=== PATIENT | male | born 1945 | race Caucasian/White ===

== ENCOUNTER 2019-09-15 13:12 | Outpatient (CLI) | payer MEDICARE, SELFPAY | END 2019-09-15 13:13 | disposition home or self-care (01) | LOC: ANHAUDIO 13:13 | PROVIDERS: PCP Family Medicine; Visit Provider Family Medicine | DX: H90.A32 Mixed conductive and sensorineural hearing loss, unilateral, left ear with restricted hearing on the contralateral side (principal); H90.A21 Sensorineural hearing loss, unilateral, right ear, with restricted hearing on the contralateral side | CPT/HCPCS: 92557; 92567 ==

== ENCOUNTER → 2020-09-06 13:03 | Outpatient (CLI) | payer MEDICARE, SELFPAY ==
--- NOTE | ~2020-09-06 | US_ITS ---
EXAMINATION: US renal BI EXAM DATE: 09/06/2020 13:30 INDICATION: Acute kidney injury. TECHNIQUE: Multiple grayscale and Doppler images of the kidneys were obtained (by a technologist who performed the scan) and subsequently reviewed. There is no prior study for comparison. FINDINGS: Right kidney: There is normal contour and echogenicity. It measures 11.8 x 5.9 x 6.2 centimeters. T here are no focal renal lesions identified. There is mild hydronephrosis. Left kidney: There is normal contour and echogenicity. It measures 10.7 x 4.9 x 5.0 centimeters. The re is an indeterminate hypoechoic region measuring 1.9 cm appears to be in the mid to lower pole. T here is no hydronephrosis. Bladder unremarkable. IMPRESSION: 1. Indeterminate left renal hypoechoic region, possible solid mass versus lobulation. 2. Mild right-sided hydronephrosis. Does patient have any right flank pain? 3. Consider CT scan without (and with contrast if able) for further evaluation. Reviewed, dictated and finalized at location A. ENT CARRIER IMPRESSION: 1. Indeterminate left renal hypoechoic region, possible solid mass versus lobu lation. 2. Mild right-sided hydronephrosis. Does patient have any right flank pain? 3. Consider CT scan without (and with contrast if able) for further evaluation .
== END ==
PROVIDERS: PCP Family Medicine; Visit Provider Family Medicine
DX: N17.9 Acute kidney failure, unspecified (principal)
CPT/HCPCS: 76775

== ENCOUNTER → 2020-09-12 09:08 | Outpatient (CLI) | payer MEDICARE, SELFPAY ==
--- NOTE | ~2020-09-12 | CT_ITS ---
EXAMINATION: CT abdomen pelvis wo con DATE: 09/12/2020 09:35 INDICATION: Hydronephrosis of right kidney. Abnormality left kidney. History kidney stones. TECHNIQUE: Computed tomography (CT) of the abdomen and pelvis was performed without intravenous contr ast. Automated exposure control and iterative reconstruction technique were employed. Exam dose: 636 .52 mGy-cm total exam DLP. COMPARISON: 09/06/2020 bilateral renal ultrasound: Indeterminate left renal hypoechoic lesion, possibl y solid mass versus lobulation was reported. Mild right hydronephrosis. FINDINGS: Severe emphysematous changes of the included lower lung zones. Normal heart size. Coronary artery calcifications. Old pulmonary granulomatous disease. Multiple calcified hepatic and splenic granulomas, also consiste nt with old granulomatous disease. 1.4 cm gallstone. No gallbladder wall thickening or pericholecystic fluid or fat stranding is noted. No hepatic, splenic, pancreatic, and adrenal or renal space-occupying mass lesion is evident on this limited noncontrast examination. Approximately 2 mm nonobstructing lower pole left renal calculus. No ureteral calculus on either side . Mild nonspecific right hydroureteronephrosis; consider repeat CT abdomen pelvis with IV contrast ma terial to determine if there might be a focal bladder or prostate mass at the trigone area obstructin g the right ureter. Alternatively, consider cystoscopy and retrograde pyelography. There is moderatel y prominent enlargement of the prostate gland. The urinary bladder is unremarkable. There is atherosclerotic calcification but normal caliber of the abdominal aorta and iliac arteries. No intraperitoneal or retroperitoneal or pelvic mass lesion or adenopathy or ascites. Right ventriculoperitoneal shunt catheter terminates in the right lower quadrant. There is a small am ount of free fluid in the dependent pelvis. There is diverticulosis of the sigmoid and descending colon; no CT evidence of diverticulitis. No bow el obstruction, bowel wall thickening, pneumatosis or intraperitoneal free air is detected. Small fat-containing inguinal hernias, right larger than left. There are degenerative changes of the thoracic and lumbar spine. No suspicious osteolytic or osteobla stic lesions are noted. IMPRESSION: Mild right hydroureteronephrosis, of undetermined etiology; further evaluation is recomme nded by CT abdomen pelvis with IV contrast material or perhaps cystoscopy with retrograde right pyelo graphy, in order to exclude any possible obstructing bladder or distal ureteral mass Severe emphysema Coronary artery disease Cholelithiasis 2 mm nonobstructing lower pole left renal calculus Prostate enlargement Right ventriculoperitoneal shunt catheter Diverticulosis of the left colon; no CT evidence of diverticulitis Reviewed, dictated and finalized at Location A. Reviewed, dictated and finalized at location A. IT RISK ASSOCIATE IMPRESSION: Mild right hydroureteronephrosis, of undetermined etiology; further evaluation is recommended by CT abdomen pelvis with IV contrast material or pe rhaps cystoscopy with retrograde right pyelography, in order to exclude any pos sible obstructing bladder or distal ureteral mass Severe emphysema Coronary artery disease Cholelithiasis 2 mm nonobstructing lower pole left renal calculus Prostate enlargement Right ventriculoperitoneal shunt catheter Diverticulosis of the left colon; no CT evidence of diverticulitis
== END ==
PROVIDERS: PCP Family Medicine; Visit Provider Family Medicine
DX: R93.422 Abnormal radiologic findings on diagnostic imaging of left kidney (principal); N13.30 Unspecified hydronephrosis; J43.9 Emphysema, unspecified; I25.10 Atherosclerotic heart disease of native coronary artery without angina pectoris; N20.0 Calculus of kidney; N40.0 Benign prostatic hyperplasia without lower urinary tract symptoms; K57.90 Diverticulosis of intestine, part unspecified, without perforation or abscess without bleeding
CPT/HCPCS: 74176

== ENCOUNTER 2020-10-11 13:01 | Outpatient (CLI) | payer MEDICARE, SELFPAY | END 2020-10-11 13:02 | disposition home or self-care (01) | LOC: ANHCOVIDVC 13:01 | PROVIDERS: PCP Family Medicine | DX: Z23 Encounter for immunization (principal) | CPT/HCPCS: 0001A; 91300 ==

== ENCOUNTER 2020-10-22 08:06 | Outpatient (CLI) | payer MEDICARE, SELFPAY ==
--- NOTE | ~2020-10-22 | CT_ITS ---
EXAMINATION: CT abdomen pelvis wo/w con EXAM DATE: 10/22/2020 08:48 INDICATION: Hydronephrosis. TECHNIQUE: Spiral CT of the abdomen and pelvis was performed without contrast. The patient was then injected with small bolus intravenous Omnipaque 350, followed by delay of approximately 10 minutes to allow collecting system to opacify. A post contrast scan abdomen and pelvis was performed during inj ection of remaining contrast. A total of 130 cc intravenous contrast was administered. The dose-juan daniel th product (DLP) for this examination was 949.07 mGy-cm. The exposure was tailored according to randee ent size (auto mA exposure control), and iterative reconstruction (ASIR) was used as additional dose reduction technique. Comparison is made to prior examination from 09/12/2020. FINDINGS: There is a punctate kidney stone in the lower pole of each kidney. No ureteral stones or hy dronephrosis. The kidneys enhance symmetrically. There are no suspicious renal lesions. The calyce s and opacified portions of ureters are unremarkable, without filling defects or focal suspicious str ictures. The bladder is unremarkable. Prostate measures 4.7 cm transverse dimension, mildly enlarge d. Distal aspect of a ventriculoperitoneal shunt. Small amount of free pelvic fluid with benign periphe rally calcified region within it. The liver, spleen, adrenal glands and pancreas are unremarkable. T here is peripherally calcified 1.3 cm gallstone. There is no retroperitoneal or pelvic lymphadenopat hy. There is mild scattered arteriosclerotic disease. There are small bilateral inguinal fat-contai halina hernias. There is mild sigmoid colonic diverticulosis. There is no adjacent inflammatory change to suggest di verticulitis. The stomach and small bowel are unremarkable. There is expected amount of colonic stoo l. No free intraperitoneal gas. The heart is normal in size. There are no pericardial or pleural effusions. There is basilar dependent and nondependent mild to moderate amount of interlobular sept al thickening, interstitial lung disease. There are no osteoblastic or osteolytic lesions identified . Compared to September, previously seen mild right hydronephrosis is no longer identified, could've been transient. IMPRESSION: 1. Punctate stone in each kidney. Mild prostatomegaly. Otherwise unremarkable genitourinary system. 2. Small inguinal fat-containing hernias. 3. Mild sigmoid diverticulosis. 4. 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 5. Cholelithiasis. Reviewed, dictated and finalized at location A.
[2020-10-22 08:30] LABS: Estimated Glomerular Filt Rate 54
== END 2020-10-22 08:07 | disposition home or self-care (01) ==
LOC: ANHIMG 08:09
PROVIDERS: PCP Family Medicine; Visit Provider Urology
DX: N13.30 Unspecified hydronephrosis (principal); K80.20 Calculus of gallbladder without cholecystitis without obstruction; K57.30 Diverticulosis of large intestine without perforation or abscess without bleeding; N20.0 Calculus of kidney; J84.10 Pulmonary fibrosis, unspecified; K40.20 Bilateral inguinal hernia, without obstruction or gangrene, not specified as recurrent; N40.0 Benign prostatic hyperplasia without lower urinary tract symptoms
CPT/HCPCS: 74178; Q9967

== ENCOUNTER 2020-11-01 13:03 | Outpatient (CLI) | payer MEDICARE, SELFPAY | END 2020-11-01 13:04 | disposition home or self-care (01) | LOC: ANHCOVIDVC 13:03 | PROVIDERS: PCP Family Medicine | DX: Z23 Encounter for immunization (principal) | CPT/HCPCS: 0002A; 91300 ==

== ENCOUNTER 2021-03-07 14:41 | Outpatient (CLI) | payer MEDICARE, SELFPAY ==
--- NOTE | ~2021-03-07 | CT_ITS ---
EXAMINATION: CT brain wo con EXAM DATE: 03/07/2021 15:10 INDICATION: Presence of cerebrospinal fluid drainage device. TECHNIQUE: Spiral CT of the head was performed without contrast. Axial, coronal and sagittal images were reviewed. The dose-length product (DLP) for this examination was 681.00 mGy-cm. The exposure w as tailored according to patient size, and iterative reconstruction (ASIR) was used as additional dos e reduction technique. There is no prior study for comparison. FINDINGS: There is a right frontal ventricular shunt, tip in the frontal horn. Ventricles are expecte d size. There is small to moderate-sized region of left cerebellar encephalomalacia with suboccipital craniectomy superficial to this. Massive air cells and imaged sinuses are well aerated. No acute in tracranial hemorrhage, brain mass, extra-axial collections or obstructive hydrocephalus. IMPRESSION: 1. Right ventricular shunt in position. 2. No acute intracranial findings. Reviewed, dictated and finalized at location B.
== END 2021-03-07 14:42 | disposition home or self-care (01) ==
PROVIDERS: PCP Family Medicine; Visit Provider Family Medicine
DX: Z98.2 Presence of cerebrospinal fluid drainage device (principal)
CPT/HCPCS: 70450

== ENCOUNTER 2025-02-08 00:26 | Day surgery (SDC) | payer MEDICARE, SELFPAY ==
[2025-01-18 14:27] VITALS: BMI 25.9
--- OUTSIDE RECORDS SUMMARY | 2025-02-08 00:28 | XMS_ITS | Encounter Summary ---
Author Organization [facility] Address [address] [place] [address] Care Team Providers Care Rattlesnake Farmer Name Role Phone Omega Ye MD Primary Care Provider Angeles tavera Encounter Details Date Type Department Care Team (Late st Contact Info) Description 12/12/2008 Outpatient Historical [facility] Shaneka Rodrigues MD NO ADDRESS ON FILE Personal History of Colonic Polyps Social History Tobacco Use Types Packs/Day Years Used Date Smoking Tobacco: Never Assessed Sex and Gender Information Value Date Recorded Sex Assigned at Not on file Legal Sex Male 4:50 AM PBX TEACHER Gender Identity Not on file Sexual Orientation Not on file documented as of this encounter Plan of Treatment Not on file documented as of this encounter Procedures Procedure Name Priority Date/Time Associated Diagnosis Comments PATHOLOGY Routine 12/12/2008 12:48 PM CDT documented in this encounter Results * PATHOLOGY (12/12/2008 12:48 PM CDT) FINAL REPORT [address] [address] Patient: MISAEL FERNANDEZ : 1945 Procedure Date: 12/12/2008 Accession Date: 12/12/2008 Case No: [id number] Ordering Dr: SHANEKA RODRIGUES Case types AW, BW, FW, NW and SH are performed by [facility], [place], [place] SURGICAL PATHOLOGY & NON-GYNECOLOGIC CYTOPATHOLOGY REPORT DIAGNOSIS LARGE INTESTINE, RECTUM, BIOPSY: - TUBULAR ADENOMA. Specimen Description: Rectal polyp. Operative Procedure: Colonoscopy. Patient Information/Histo ry/Diagnosis: Colon polyp(s). Adenomatous vs. hyperplastic vs. other. Gross: The specimen is received in a container labeled Misael Ahuja. Jeremy, rectum polyp. It consists of a single piece of camacho tissue measuring 0.4 x 0.3 x 0.2 cm. The specimen is submitted entirely labeled A1. KLA/SKMadhuri 12.12.2008 01:59 pm Microscopic: Received are slides labeled [id number], Misael Fernandez. Sections of rectal polyp contain a single fragment of colonic mucosa, notable for the presence of crowded tubular glands lined by adenomatous epithelium. There is no evidence of high-grade dysplasia or malignancy. STM/MAEGAN 12.13.2008 11:26 am Staging Form: No. ELECTRONIC SIGNATURE FOR DEEP KING M.D.- 12/13/08 01:08 pm INTERFACE SYSTEM 12/12/2008 12:4 8 PM CDT Shaneka Rodrigues MD PATHOLOGY/CYTOLOGY ORDERABLES Final Result INTERFACE SYSTEM Refer to clinic/hospital department documented in this encounter Visit Diagnoses Diagnosis Personal history of colonic polyps documented in this encounter Care Teams Rattlesnake Farmer Relationship Specialty Start Date End Date Omega Ye MD PCP - General 05/08/00 documented as of this encounter
--- OUTSIDE RECORDS SUMMARY | 2025-02-08 00:28 | XMS_ITS | Referral Summary ---
Author Organization [facility] Address [address] [place] [address] Care Team Providers Care Job Placement Officer Name Role Phone Kashif Weathers MD Primary Care Provider [phone] Allergies Active Allergy Reactions Criticality Noted Date Comments Penicillins Itching Low 02/27/2012 Medications lisinopriL (PRINIVIL,ZESTR IL) 10 mg tablet 09/04/2020 Active simvastatin (ZOCOR) 20 mg tablet Take 20 mg by mouth Active multivitamin capsule Take 1 capsule by mouth daily Active ergocalciferol (Vitamin D2) 50,000 unit capsule Take 50,000 Units by mouth once a week Active Active Problems Problem Noted Date Diagnosed Date Monoclonal gammopathy 10/20/2020 Immunizations Immunization Administration Dates Next Due Influenza, Trivalent, High D ose, Split, Preservative Free, Intramuscular 05/13/2018,04/05/2017,05/04/2016,05/24 Influenza, Trivalent, IM (MDV) 05/09/2014,2012,08/26/2012 Influenza, Trivalent, Preser vative Free, Intramuscular 04/30/2020 Pfizer SARS-CoV-2 Monovalent Vaccination (12+ Yrs) PURPLE 11/01/2020,10/11/2020 Pneumococcal Conjugate PCV 13 05/30/2019 ZOSTER Recombinant 02/27/2020,10/17/2019 Social History Tobacco Use Types Packs/Day Years Used Date Smoking Tobacco: Never Smokeless Tobacco: Never AUDIT-C Answer Date Recorded Q1: How often do you have a drink containing alc ohol? 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 Not on de e Last Filed Vital Signs Vital Sign Reading Time Taken Comments Blood Pressure 119/75 05/31/2021 9:01 AM CDT Pulse 80 05/31/2021 9:01 AM CDT Temperature 36.8 C (98.2 F) 05/31/2021 9:01 AM CDT Respiratory Rate 16 05/31/2021 9:01 AM CDT Oxygen Saturation 95% 05/31/2021 9:01 AM CDT Inhaled Oxygen Concentration - - Weight 83.9 kg (185 lb) 05/31/2021 9:01 AM CDT Height 175.3 cm (5' 9) 05/31/2021 9:01 AM CDT Body Mass Index 27.32 05/31/2021 9:01 AM CDT Plan of Treatment Not on file Insurance [facility] Address: [facility] [address] [place] [address] Care Teams Job Placement Officer Relationship Specialty Start Date End Date Kashif Weathers MD [address] [place] [address] PCP - General Family Medicine 09/27/20
--- OUTSIDE RECORDS SUMMARY | 2025-02-08 00:28 | XMS_ITS | Encounter Summary ---
Author Organization [facility] Address 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
--- OUTSIDE RECORDS SUMMARY | 2025-02-08 00:28 | XMS_ITS | Clinical Summary ---
Author Organization [facility] Address [address] [place] [address] Care Team Providers Care Shower Attendant Name Role Phone Kashif Weathers MD Primary Care Provider [phone] Allergies Active Allergy Reactions Criticality Noted Date [...] Conjugate PCV 13 05/30/2019 ZOSTER Recombinant 02/27/2020,10/17/2019 Surgical History Surgery Date Site/Laterality Comments CRANIOTOMY FOR TUMOR POLICE LIEUTENANT PATROL SHUNT INSERTION Medical History Medical History Date Comments Hyperlipidemia Osteoarthritis Hypertension Brain tumor (benign) (HCC) Family History Medical History Relation Name Comments No Known Problems Brother Colon cancer Father Heart attack Mother No Known Problems Sister Relation Name Status Comments Brother Alive Father Mother Sister Alive Social History Tobacco Use Types Packs/Day Years [...] on file Legal Sex Male 2:26 AM KNOT BORER Gender Identity Not on file Sexual Orientation Not on file 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 Not on de e Obstetrics History Last Filed Vital Signs Vital Sign Reading [...] 05/31/2021 9:01 AM CDT Plan of Treatment Health Maintenance Due Date Last Done Comments Depression Screening 1945 Fall Risk Assessment 1945 DTaP/Tdap/Td Vaccine (1 - Tdap) 1955 Hepatitis B Screening 1962 Well Visit 65+ 2009 Pneumococcal vaccine 65+ (2 of 2 - PPSV23) 05/30/2020 05/30/2019 Covid-19 Vaccine (3 - 2023-2 5 season) 2024 11/01/2020, 10/11/2020 Influenza Vaccine (Season Ended) 2025 04/30/2020, 05/13/2018, 04/05/2017, Additional history exists Zoster Vaccine Completed 02/27/2020, 10/17/2019 Insurance [facility] MEDICARE ADVANTAGE Care Teams Shower Attendant Relationship Specialty Start Date End Date Kashif Weathers MD [address] [place] [address] PCP - General Family Medicine 09/27/20
--- OUTSIDE RECORDS SUMMARY | 2025-02-08 00:28 | XMS_ITS | Clinical Summary ---
Author Organization [facility] Address [address] [place] [address] Phone Care Team Providers Care Nursing Unit Manager Name Role Phone Omega Ye MD Primary Care Provider Unarachel lable Allergies Active Allergy Reactions Criticality Noted Date Comments Penicillins Itching Low 02/27/2012 Medications simvastatin (ZOCOR) 20 mg Oral tablet Take 20 mg by mouth Daily LATE. Active Social History Tobacco Use Types Packs/Day Years Used Date Smoking Tobacco: Never Alcohol Use Standard Drinks/Week Comments No 0 (1 standard drink = 0.6 oz pur e alcohol) Sex and Gender Information Value Date Recorded Sex Assigned at Not on file Legal Sex Male 4:50 AM ADVISORY SERVICES ASSOCIATE Gender Identity Not on file Sexual Orientation Not on file Last Filed Vital Signs Vital Sign Reading Time Taken Comments Blood Pressure 113/64 02/27/2012 10:03 AM CDT Pulse 67 02/27/2012 10:03 AM CDT Temperature 36.5 C (97.7 F) 02/27/2012 9:41 AM CDT Respiratory Rate 16 02/27/2012 10:03 AM CDT Oxygen Saturation 100% 02/27/2012 10:03 AM CDT Inhaled Oxygen Concentration - - Weight 85.3 kg (188 lb) 02/27/2012 8:12 AM CDT Height 175.3 cm (5' 9) 02/27/2012 8:12 AM CDT Body Mass Index 27.76 02/27/2012 8:12 AM CDT Plan of Treatment Health Maintenance Due Date Last Done Comments DTAP/TDAP/TD VACCINES (1 - Tdap) 1963 PNEUMOCOCCAL VACCINE 50+ YEARS (1 of 1 - PCV) 08/09/19 94 ZOSTER VACCINE (1 of 2) 1994 RSV VACCINE (60+ or ) (1 - 1-dose 75+ series) 2019 INFLUENZA VACCINE (#1) 2024 COLORECTAL SCREENING Discontinued 02/27/2012 Colorectal Cancer Screening Discontinued FIT-DNA Q 3 years Discontinued FIT/FOBT Q 1 year Discontinued Flex Sig/CT Colonography Q 5 years Discontinued Insurance [facility] [id number] Advance Directives For more information, please contact: [phone] * Full Code (Latest Code Status on File) Date Activated Date Inactivated Comments 02/27/2012 8:12 AM 02/27/2012 12:25 PM Care Teams Nursing Unit Manager Relationship Specialty Start Date End Date Omega Ye MD PCP - General 05/08/00
--- OUTSIDE RECORDS SUMMARY | 2025-02-08 00:28 | XMS_ITS | Encounter Summary ---
Author Organization [employer] Address [address] [place] [address] Care Team Providers Care Inkjet Operator Name Role Phone Omega Ye MD Primary Care Provider Angeles tavera Encounter Details Date Type Department Care Team (Late st Contact Info) Description 05/08/2000 Outpatient Historical [facility] Mario Alberto Cota MD NO ADDRESS ON FILE Screening for other malignant neoplasm (Primary Dx) Social History Tobacco Use Types Packs/Day Years Used Date Smoking Tobacco: Never Assessed Sex and Gender Information Value Date Recorded Sex Assigned at Not on file Legal Sex Male 4:50 AM NEW ACCOUNTS REPRESENTATIVE Gender Identity Not on file Sexual Orientation Not on file documented as of this encounter Plan of Treatment Not on file documented as of this encounter Visit Diagnoses Diagnosis Screening for other malignant neoplasm- Primary documented in this encounter Care Teams Inkjet Operator Relationship Specialty Start Date End Date Omega Ye MD PCP - General 05/08/00 documented as of this encounter
--- NOTE | 2025-02-08 04:18 | WPDANESEPPF ---
Anes - Initial Pre Proc Eval Procedure: Operation Date: 02/08/25 08:00 Proposed Procedures p Colonoscopy - Damaso Davalos MD Date/Time: 02/08/25 04:18 Surgeon: Damaso Davalos MD Pre Op Diagnosis: Family history of malignant neoplasm of digestive Patient Data Age: 79 Gender: M Height: 1.78 m Weight: 82 kg Allergies Allergy/AdvReac Type Severity Reaction Status Date / Time Penicillins Allergy Mild Itching Verified 02/08/25 06:43 Home Medications ?Medication ?Instructions ?Recorded ?Confirmed ?Type multivitamin 1 tablet PO DAILY 06/28/19 02/08/25 History cholecalciferol (vitamin D3) 25 25 mcg PO DAILY 03/24/23 02/08/25 History mcg (1,000 unit) capsule lisinopril 5 mg tablet 5 mg PO DAILY #90 tabs 12/18/24 02/08/25 Rx simvastatin 20 mg tablet 20 mg PO DAILY #90 tabs 12/18/24 02/08/25 Rx allopurinol 300 mg tablet 300 mg PO DAILY #90 tabs 01/11/25 02/08/25 Rx Patient hx anesthesia problems: none Family hx anesthesia problems: none Results Review: All pre-operative results and documents have been reviewed as part of the pre-operative evaluation. [facility] Past Medical History Medical History (Updated 09/20/24 @ 17:53 by Kashif Weathers MD) Chronic kidney disease, stage 3a Atherosclerosis of coronary artery Chronic kidney disease, stage 2 (mild) Emphysema, unspecified Atherosclerosis of aorta Hypertensive chronic kidney disease with stage 1 through stage 4 chronic kidney disease, or unspecified chronic kidney disease Unspecified hearing loss, unspecified ear Tinnitus, left ear Hyperlipidemia, unspecified Gout, unspecified Pure hypercholesterolemia, unspecified Presence of cerebrospinal fluid drainage device Atherosclerotic heart disease of [place] coronary artery without angina pectoris Hypercholesterolemia Surgical History Surgical History History of vasectomy 1978 History of craniotomy With FARM PLANNER shunt- 1995 Family History Family History Sibling Diabetes mellitus Patient's brother is in good health Mother Patient's mother is in good health Father Carcinoma of colon Social History Social History Smoking status: Never smoker Second hand tobacco smoke exposure: No Smoking end date: 08/10/1968 Alcohol intake: never Substance use: never Substance use type: does not use Lack of Transportation: No Lack of Food: Never True Current Housing: I Have Housing Concerned About Future Housing: No Difficulty Paying Gas/Electric Bills: No Difficulty Paying for Meds: No Currently Unemployed: YES Education: High School Diploma/GED Difficulty w/ Childcare or Family Care: No Living arrangements: with family Occupation/Education: retired Gender identity (if verbalized by the patient): Male Sexual Orientation (if Verbalized by the Patient): Straight or Heterosexual Spiritual care concerns: No Anes - Eval Final PreProcedure Day of Procedure 02/08/25 04:18 Patient weight: normal Heart: regular rate and rhythm Lungs: clear to auscultation and normal air movement Airway: Mallampati scale class II Neurological: alert and oriented Last oral intake: >/= 8 hours ASA classification: III Emergent: no Anesthetic plan: proceed Anesthesia type and monitoring: general GIVS and standard monitoring Results Review: All pre-operative results and documents have been reviewed as part of the pre-operative evaluation. Informed Consent: The patient's anesthetic plan and its attendant risks and benefits were discussed with the patient/family/POA. Questions were solicited and answers provided to the satisfaction of the patient/family/POA.
[2025-02-08 06:44] VITALS: BP 117/73; PULSE 76; RESP 18; TEMP 36.1; O2SAT 99; BMI 24.2
[2025-02-08] MEDS: LACTATED RINGERS 1,000 ML 150 ML IV CONT (06:54)
--- NOTE | 2025-02-08 07:24 | P.HP_ITS ---
H&P: HPI History of Present Illness Date/Time: 02/08/25 07:24 Chief Complaint: Family history of colorectal cancer Narrative: This patient has family history of colorectal cancer. his father had colon cancer at age 60. His last colonoscopy was 5 years ago. Reportedly no polyps. Review of Systems Review of Systems: All systems reviewed & are unremarkable except as noted in HPI and below PMFSH Past Medical History Medical History (Updated 09/20/24 @ 17:53 by Kashif Weathers MD) Chronic kidney disease, stage 3a Atherosclerosis of coronary artery Chronic kidney disease, stage 2 (mild) Emphysema, unspecified Atherosclerosis of aorta Hypertensive chronic kidney disease with stage 1 through stage 4 chronic kidney disease, or unspecified chronic kidney disease Unspecified hearing loss, unspecified ear Tinnitus, left ear Hyperlipidemia, unspecified Gout, unspecified Pure hypercholesterolemia, unspecified Presence of cerebrospinal fluid drainage device Atherosclerotic heart disease of [place] coronary artery without angina pectoris Hypercholesterolemia Surgical History Surgical History History of vasectomy 1978 History of craniotomy With DENTISTRY TEACHER shunt- 1995 Family History Family History Sibling Diabetes mellitus Patient's brother is in good health Mother Patient's mother is in good health Father Carcinoma of colon Social History Social History Smoking status: Never smoker Second hand tobacco smoke exposure: No Smoking end date: 08/10/1968 Alcohol intake: never Substance use: never Substance use type: does not use Lack of Transportation: No Lack of Food: Never True Current Housing: I Have Housing Concerned About Future Housing: No Difficulty Paying Gas/Electric Bills: No Difficulty Paying for Meds: No Currently Unemployed: YES Education: High School Diploma/GED Difficulty w/ Childcare or Family Care: No Living arrangements: with family Occupation/Education: retired Gender identity (if verbalized by the patient): Male Sexual Orientation (if Verbalized by the Patient): Straight or Heterosexual Spiritual care concerns: No Meds Home Medications and Allergies Home Medications ?Medication ?Instructions ?Recorded ?Confirmed ?Type multivitamin 1 tablet PO DAILY 06/28/19 02/08/25 History cholecalciferol (vitamin D3) 25 25 mcg PO DAILY 03/24/23 02/08/25 History mcg (1,000 unit) capsule lisinopril 5 mg tablet 5 mg PO DAILY #90 tabs 12/18/24 02/08/25 Rx simvastatin 20 mg tablet 20 mg PO DAILY #90 tabs 12/18/24 02/08/25 Rx allopurinol 300 mg tablet 300 mg PO DAILY #90 tabs 01/11/25 02/08/25 Rx Allergies Allergy/AdvReac Type Severity Reaction Status Date / Time Penicillins Allergy Mild Itching Verified 02/08/25 06:43 Vital Signs Vital Signs - 24 hr 02/08/25 06:44 Temperature 97 F L Pulse Rate 76 Respiratory Rate 18 Blood Pressure 117/73 Pulse Oximetry 99 Oxygen Delivery Room Air Exam Const: General: cooperative and healthy appearing Resp: Effort & Inspection: normal respiratory effort and able to speak in complete sentences Auscultation: clear to auscultation bilaterally Cardio: Rate: regular rate Rhythm: regular rhythm GI: Inspection: normal to inspection GI Palp: No No hepatosplenomegaly present Auscultation: normal bowel sounds Rectal Exam: deferred Skin: General skin exam: normal color Psych: Appearance: grossly normal Mental Status: mental status grossly normal Assessment and Plan Assessment and plan (1) Family history of colon cancer in father: Code(s): Z80.0 - Family history of malignant neoplasm of digestive organs Status: Acute Assessment and Plan: The patient is deemed a good candidate for the procedure. Consent signed. Will proceed.
--- NOTE | 2025-02-08 07:50 | S_PTH ---
PATIENT: Germán Luna LOC: [facility] U#:[id number] AGE/SX: 79/M ROOM: RE02/08/[address]: Damaso Davalos MD : 1945 BED: DIS: 02/08/2025 SPEC #: [id number] RECD: 02/08/25 13:15 STATUS: [place] REQ #: [id number] RIP: 02/08/25 07:[address]: Damaso Davalos DEPT: [facility] Surgical RECD BY: Jazzmine Mcclure ENTERED: 02/08/25 13:15 SP TYPE: Surgical OTHR DR: Kashif Weathers MD Tissues: A - Colon Polypectomy Procedures: Hematoxylin and Eosin Stain Gross and Microscopic Level 4
[2025-02-08 07:52] VITALS: BP 82/52; PULSE 72; RESP 20; O2SAT 98
[2025-02-08 08:02] VITALS: BP 84/53; PULSE 69; RESP 20; O2SAT 99
[2025-02-08 08:12] VITALS: BP 109/71; PULSE 72; RESP 19; O2SAT 99
== END 2025-02-08 08:30 | disposition home or self-care (01) ==
PROVIDERS: PCP Family Medicine; Referring Provider Family Medicine; Visit Provider Internal Medicine Gastroenterology
PROC: 0DJD8ZZ Inspection of Lower Intestinal Tract, Via Natural or Artificial Opening Endoscopic (ICD-10-PCS; CPT 45378; principal; 2025-02-08 08:00)
DX: Z12.11 Encounter for screening for malignant neoplasm of colon (principal); D12.2 Benign neoplasm of ascending colon; K57.30 Diverticulosis of large intestine without perforation or abscess without bleeding; K64.8 Other hemorrhoids; Z80.0 Family history of malignant neoplasm of digestive organs
CPT/HCPCS: 45385; 88305; J7120